=== PATIENT | female | born 1990 | race Asian ===

== ENCOUNTER 2017-10-08 13:41 | Emergency (ER) | payer OTHER ==
[~2017-10-08] VITALS: Ht 152.4 cm; Wt 56.7 kg
[2017-10-08] MEDS ORDERED: IBUPROFEN 600 MG TABLET PO ONE ×2 (14:30→14:35)
[2017-10-08 16:10] VITALS: BP 119/80
--- NOTE | 2017-10-08 16:11 | NUR ---
Patient discharged to home in stable condition. Written and verbal after care instructions given. Patient verbalizes understanding of instruction.
== END 2017-10-08 16:12 | disposition home or self-care (01) ==
LOC: ER 13:42
DX: S20.01XA Contusion of right breast, initial encounter (principal); S90.02XA Contusion of left ankle, initial encounter; V49.59XA Passenger injured in collision with other motor vehicles in traffic accident, initial encounter; Y93.89 Activity, other specified; Y92.410 Unspecified street and highway as the place of occurrence of the external cause; Y99.8 Other external cause status
CPT/HCPCS: 99282; A4606; Z7610